=== PATIENT | male | born 1965 ===

== ENCOUNTER 2020-09-02 20:00 | Outpatient (CLI) | payer OTHER, SELFPAY | END 2020-09-02 20:01 | disposition home or self-care (01) | LOC: SLEEP 09-03 08:44 | PROVIDERS: Family Provider Electrodiagnostic Medicine; Visit Provider Electrodiagnostic Medicine | DX: G47.33 Obstructive sleep apnea (adult) (pediatric) (principal) | CPT/HCPCS: 95811 ==